=== PATIENT | female | born 1980 | race African-American/Black ===

== ENCOUNTER 2023-07-06 04:16 | Emergency (ER) | payer BC, SELFPAY ==
[2023-07-06 04:24] VITALS: BP 179/97
[2023-07-06 05:52] VITALS: BMI 56.2
[2023-07-06 05:59] LABS: % Basophils 0.7 % (0-2); % Eosinophils 4.8 % (0-6); % Immature Granulocytes 0.4 % (0-0.5); % Lymphocytes 24.3 % (20.5-51.1); % Neutrophils 63.8 % (42.2-75.2); Absolute Basophils 0.1 10^3/uL (0-0.2); Absolute Eosinophils 0.5 10^3/uL (0-0.7); Absolute Lymphocytes 2.5 10^3/uL (1.2-3.4); Absolute Monocytes 0.6 10^3/uL (0.1-0.6); Absolute Neutrophils 6.5 10^3/uL (1.4-6.5); Hematocrit 32.4 % (37.0-47.0); Hemoglobin 10.2 g/dL (12.0-16.0); Mean Corp Hgb Conc. 31.5 g/dL (33.0-37.0); Mean Corpuscular Hgb 24.8 pg (27.0-31.0); Mean Corpuscular Volume 78.8 fL (81.0-99.0); Mean Platelet Volume 9.5 fL (7.4-10.4); Nucleated Red Blood Cells % 0 %; Platelet Count 415 10^3/uL (130-400); Red Blood Cell Count 4.11 10^6/uL (4.20-5.40); Red Cell Dist. Width 16.7 % (11.5-14.5); White Blood Cell Count 10.2 10^3/uL (4.8-10.8)
[2023-07-06 06:00] VITALS: BP 135/88
--- NOTE | 2023-07-06 06:20 | ED.GENMED ---
History of Present Illness
General
Chief Complaint: Chest Pain
Source: patient and family
Exam Limitations: none
Time Seen by Provider: 07/06/23 06:19
Nursing documentation reviewed up to this point in time: agreed with
Travel History
Have you had any contact with someone who has COVID-19?: No
Do you have any symptoms of coronavirus? Fever > 100 degrees, chills, cough, shortness of breath, sore throat, loss of taste or smell, muscle aches, or headache?: No
History of Present Illness
History of Present Illness:
43 yo Female presents emergency department complaining of intermittent chest pain for the past 2 weeks. Last night she noticed swelling and pain in her left arm. She ran a 5K last week without any difficulty. She denies any exertional chest pain.
Past History
Past History
ED Past Medical History: Other (Anemia)
ED Past Surgical History:
Social History
Tobacco: Non-smoker
Alcohol: None
Drug: None
Living: with family
Employment: Employed
Family History
Family History: Hypertension
Review of Systems
Review of Systems
Allergies reviewed?: Yes
All Other Systems: Not applicable
Constitutional: Reports no symptoms
EENT: Reports no symptoms
Respiratory: Reports no symptoms
Cardiac: Reports chest pain
ABD/GI: Reports no symptoms
: Reports no symptoms
Musculoskeletal: Reports edema
Skin: Reports no symptoms
Neurological: Reports no symptoms
Endocrine: Reports no symptoms
Hematologic/Lymphatic: Reports no symptoms
Psychiatric: Reports no symptoms
Phy Exam
Physical Exam
Physical Exam:
Physical Exam
General: no apparent distress, not acutely ill
Neck: supple. no meningeal signs. normal posterior pharynx
Heart: s1/s2 regular rate and rhythm, no murmur. equal radial
pulses. Chest wall tender to palpation, reproducing pain
HEENT: Pupils equal round reactive to light, EOMI
Lungs: no acute respiratory distress. clear bilaterally
Abdomen: normal bowel sounds. not tender. no CVAT
Neuro: alert and oriented. no focal neurological deficits cranial nerves II through XII intact
Skin: no rash
Psychiatric: well kept. interactive and cooperative
Extremities: no edema. no calf tenderness. negative homans. good distal pulses
Scores
Heart Score for Chest Pain Patients
STEMI patient?: No
History: Slightly or Non-Suspicious
ECG: Normal
Age: </= 45 years
Risk Factors: No Risk Factors
Troponin: </= Normal Limit
Heart Score for Chest Pain Patients: 0
Heart Score Risk: 2.5% MACE over next 6 weeks
Course
Orders/Labs/Results
Orders:
Orders
07/06/23 04:29
ECG [Electrocardiogram (*1)] Urgent
Reason for Study: Chest Pain
Cardiology Consult: Unknown
EKG- Treatment ONCE
07/06/23 05:55
Complete Blood Count/With Diff Urgent
Troponin I Urgent
07/06/23 06:29
US Periph Venous UPPER Ext LT Urgent
Comment:
Reason For Exam: left hand swelling
07/06/23 06:30
Aspirin Chewable [Low Strength Aspirin] 324 mg PO NOW STA
CR Chest - 2 Views Urgent
Comment:
Reason For Exam: chest pain
07/06/23 06:39
Comprehensive Metabolic Panel Urgent
Comment: REDRAW
07/06/23 09:15
Periph Venous Lwr Ext Left US [US Periph Venous LOWER Ext LT] Urgent
Comment:
Reason For Exam: left leg swelling, discomfort
Abnormal Lab Results
07/06/23 07/06/23
05:55 06:39
RBC 4.11 L 10^6/uL
(4.20-5.40)
Hgb 10.2 L g/dL
(12.0-16.0)
Hct 32.4 L %
(37.0-47.0)
MCV 78.8 L fL
(81.0-99.0)
MCH 24.8 L pg
(27.0-31.0)
MCHC 31.5 L g/dL
(33.0-37.0)
RDW 16.7 H %
(11.5-14.5)
Plt Count 415 H 10^3/uL
(130-400)
Glucose 105 H mg/dl
(70-99)
07/06/23 05:55
07/06/23 06:39
Vital Signs
Initial and Last Documented VS:
Initial Vital Signs
Temp Pulse Resp BP Pulse Ox
98.2 F 88 20 179/97 98
07/06/23 04:24 07/06/23 04:24 07/06/23 04:24 07/06/23 04:24 07/06/23 04:24
Last Documented Vital Signs
Temp Pulse Resp BP Pulse Ox
98.2 F 68 18 123/77 98
07/06/23 04:24 07/06/23 13:14 07/06/23 09:22 07/06/23 13:14 07/06/23 13:14
MDM/Problems Addressed
Differential Diagnosis Includes:
DVT, PE
MDM/Problems Addressed:
43-year-old female with intermittent chest pain, likely musculoskeletal. Edema to the left hand, no signs of DVT. Do not suspect dissection. Stable for discharge.
*Radiology
Radiology exam reviewed: radiology read reviewed (Ultrasound left upper and left lower extremity no DVT)
*Pulse Oximetry
Patient hypoxic: no
*EKG
Interpreted by ED Provider?: Yes
EKG Intrepretation Date: 07/06/23
EKG Intrepretation Time: 04:36
Interpretation: normal
Comparison EKG: changes noted
Heart Rate: 78
Rate: normal
Rhythm: sinus
[place]: normal axis
Interval: normal interval
QRS Pattern: normal QRS
Ischemia: no ischemia
*Manager Managed Care Interpretation
Rate: normal
Interpretation: normal
Heart Rate: 68
Rhythm: sinus
*Critical Care Note
Total Time (30-74mins, 75-104mins- exclusive of procedures): Not Applicable
Patient Management
Social determinants of health affecting care: Living situation
Escalation/DeEscalation of care consider admission/obs:
Admit not indicated
ED Attending Note
-
Portions of this chart may have been created with voice recognition software.� Occasional wrong word or��sound alike� substitutions may have occurred due to the inherent limitations of voice recognition software.
Discharge Plan
Departure
Patient Disposition: Home (Routine Discharge)
Date of Disposition: 07/06/23
Time of Disposition: 13:08
Patient with high blood pressure during this ER visit?: Yes
Condition: Good
Discharge Problem:
Chest pain, non-cardiac, Edema of left upper arm, Leg edema, left
Instructions: Chest Pain That Is Not Caused by the Heart (DC), Dependent Edema (DC)
Prescriptions:
No Action
No Current Medications
0
Referrals:
Shalom Baeza MD [Family Provider] - Call in 1-3 days for appt
Interventions
Interventions:
*Risk Screen - Suicide Last Done: 07/06/23 04:24
*General Assessment Last Done: 07/06/23 04:24
*Neglect/Abuse Screening Last Done: 07/06/23 04:24
ED- Fall Risk Assessment Last Done: 07/06/23 04:24
*ED COVID-19 Vaccine History Last Done: 07/06/23 04:24
*Nursing Disposition Last Done: 07/06/23 13:20
ED- Cardiac Assessment Last Done: 07/06/23 05:17
ED- Pulmonary Assessment Last Done: 07/06/23 05:10
ED-Skin Assessment Last Done: 07/06/23 05:15
Discharge Date and Time
Discharge Date/Time: 07/06/23 13:21
Print Language: SWISS
[2023-07-06 06:27] LABS: Troponin I < 0.012 ng/ml
[2023-07-06] MEDS: LOW STRENGTH ASPIRIN 324 MG PO (06:41)
[2023-07-06 07:10] LABS: ALT (SGPT) 20 U/L (0-35); AST (SGOT) 26 U/L (14-36); Albumin 3.5 g/dl (3.5-5.0); Alkaline Phosphatase 115 U/L (38-126); Blood Urea Nitrogen 13 mg/dl (7-17); Calcium 8.8 mg/dl (8.4-10.2); Carbon Dioxide 25 mmol/L (22-30); Chloride 107 mmol/L (98-107); Estimated Creatinine Clearance > 125 ml/min; Glucose 105 mg/dl (70-99); Potassium 4.5 mmol/L (3.5-5.1); Sodium 136 mmol/L (135-145); Total Bilirubin 0.3 mg/dl (0.2-1.3); Total Protein 7.1 g/dl (6.3-8.2); eGFR > 60.00
[2023-07-06 09:22] VITALS: BP 143/94
[2023-07-06 13:11] VITALS: BP 123/77
[2023-07-06 13:14] VITALS: BP 123/77
== END 2023-07-06 13:21 | disposition home or self-care (01) ==
LOC: EMR 04:16
PROVIDERS: Student in an Organized Health Care Education/Training Program; EMERGENCY PHYSICIAN Emergency Medicine; FAMILY PHYSICIAN Internal Medicine
DX: R07.89 Other chest pain (principal); R22.42 Localized swelling, mass and lump, left lower limb; R22.33 Localized swelling, mass and lump, upper limb, bilateral; R03.0 Elevated blood-pressure reading, without diagnosis of hypertension
CPT/HCPCS: 99285; 71046; 80053; 84484; 85025; 93005; 93971

== ENCOUNTER 2024-08-04 15:15 | Emergency (ER) | payer BC, SELFPAY ==
[2024-08-04 15:23] VITALS: BP 155/99
[2024-08-04 15:54] LABS: % Basophils 0.6 % (0-2); % Immature Granulocytes 0.7 % (0-0.5); % Lymphocytes 28.1 % (20.5-51.1); % Monocytes 5.4 % (1.7-9.3); % Neutrophils 62.2 % (42.2-75.2); Absolute Basophils 0.1 10^3/uL (0-0.2); Absolute Eosinophils 0.3 10^3/uL (0-0.7); Absolute Immature Granulocytes 0.1 10^3/uL (0-0.05); Absolute Lymphocytes 2.5 10^3/uL (1.2-3.4); Absolute Monocytes 0.5 10^3/uL (0.1-0.6); Absolute Neutrophils 5.6 10^3/uL (1.4-6.5); Hematocrit 34.1 % (37.0-47.0); Hemoglobin 10.8 g/dL (12.0-16.0); Mean Corp Hgb Conc. 31.7 g/dL (33.0-37.0); Mean Corpuscular Hgb 24.6 pg (27.0-31.0); Mean Corpuscular Volume 77.7 fL (81.0-99.0); Mean Platelet Volume 9.2 fL (7.4-10.4); Nucleated Red Blood Cells % 0 %; Platelet Count 419 10^3/uL (130-400); Red Blood Cell Count 4.39 10^6/uL (4.20-5.40); Red Cell Dist. Width 16.3 % (11.5-14.5)
[2024-08-04 16:03] LABS: HCG, Serum Qualitative Screen Negative
[2024-08-04 16:07] LABS: ALT (SGPT) 19 U/L (0-35); AST (SGOT) 17 U/L (14-36); Albumin 3.9 g/dl (3.5-5.0); Alkaline Phosphatase 95 U/L (38-126); Blood Urea Nitrogen 13 mg/dl (7-17); Calcium 8.6 mg/dl (8.4-10.2); Carbon Dioxide 27 mmol/L (22-30); Chloride 107 mmol/L (98-107); Glucose 83 mg/dl (70-99); Potassium 3.8 mmol/L (3.5-5.1); Sodium 138 mmol/L (135-145); Total Bilirubin 0.5 mg/dl (0.2-1.3); Total Protein 7.6 g/dl (6.3-8.2); eGFR > 60.00
[2024-08-04 16:19] LABS: Troponin I < 0.012 ng/ml
--- NOTE | 2024-08-04 16:21 | ED.GENMED ---
History of Present Illness
General
Chief Complaint: Blood Pressure Problem
Source: patient
Exam Limitations: none
Time Seen by Provider: 08/04/24 16:20
History of Present Illness
History of Present Illness:
Patient had a medical screening last week. This morning she was told her blood pressure was high last week. This made her somewhat upset she started having some palpitations felt uneasy. She went to urgent care to recheck her blood pressure that
was elevated. They sent her to the hospital for further evaluation. They were concerned about a blood clot.
Past History
Past History
ED Past Medical History: Other (Anemia)
ED Past Surgical History:
Social History
Tobacco: Non-smoker
Alcohol: None
Drug: None
Living: with family
Employment: Employed
Family History
Family History: Hypertension
Review of Systems
Review of Systems
All Other Systems: Not applicable
Constitutional: Denies fever
Respiratory: Denies trouble breathing
Cardiac: Denies chest pain, diaphoresis or syncope
Phy Exam
Physical Exam
Physical Exam:
GENERAL: Alert and oriented in no apparent distress
EYE: Orbits normal.
NECK: Supple, no thyroid palpable
CARDIAC: Regular rate and rhythm without any obvious murmurs.
LUNGS: Clear breath sounds,normal
ABDOMEN: Soft, without focal tenderness or distention
NEUROLOGICAL: Alert and oriented , grossly non-focal
SKIN: Warm and dry, no rash or lesion, no discoloration, skin intact.
MUSCULOSKELETAL: No edema,no deformity.Good color
PSYCH: Normal and appropriate interaction.
Course
Orders/Labs/Results
Orders:
Orders
08/04/24 15:16
ECG [Electrocardiogram (*1)] Urgent
Reason for Study: Palpitations
EKG- Treatment ONCE
08/04/24 15:28
Test Result ONCE
08/04/24 15:40
Complete Blood Count/With Diff Urgent
Comprehensive Metabolic Panel Urgent
HCG, Serum Qualitative Screen Urgent
TSH Reflex To Free T4 Urgent
Comment: ADD ON
Troponin I Urgent
08/04/24 16:31
Add On- LAB Urgent
Tests Added?: tsh reflex t4
Cardiac Monitoring- Treatment ONCE
08/04/24 17:[address] Non Medication Order As Directed
Physician Order: bp please
Above order entered?: Yes
Abnormal Lab Results
08/04/24
15:40
Hgb 10.8 L g/dL
(12.0-16.0)
Hct 34.1 L %
(37.0-47.0)
MCV 77.7 L fL
(81.0-99.0)
MCH 24.6 L pg
(27.0-31.0)
MCHC 31.7 L g/dL
(33.0-37.0)
RDW 16.3 H %
(11.5-14.5)
Plt Count 419 H 10^3/uL
(130-400)
Abs Immat Gran (auto) 0.1 H 10^3/uL
(0-0.05)
Immature Gran % 0.7 H %
(0-0.5)
08/04/24 15:40
08/04/24 15:40
Vital Signs
Initial and Last Documented VS:
Initial Vital Signs
Temp Pulse Resp BP Pulse Ox
98.4 F 76 18 155/99 100
08/04/24 15:23 08/04/24 15:23 08/04/24 15:23 08/04/24 15:23 08/04/24 15:23
Last Documented Vital Signs
Temp Pulse Resp BP Pulse Ox
98.4 F 68 20 123/79 100
08/04/24 15:23 08/04/24 18:06 08/04/24 18:06 08/04/24 18:10 08/04/24 15:23
MDM/Problems Addressed
Differential Diagnosis Includes:
Patient's only medical complaint other than her uneasiness about her blood pressure was palpitations. Is not described as a severe racing heart or near syncope. No chest pain no shortness of breath no leg pain or swelling no recent long trips. My
feeling towards a blood clot are very very low below the threshold of workup. Patient will be monitored. Anemia stable. Blood pressure mildly elevated but stable
*Pulse Oximetry
Patient hypoxic: no
*EKG
Interpreted by ED Provider?: Yes
Interpretation: abnormal
Comparison EKG: changes noted
Heart Rate: 77
Rate: normal
Rhythm: sinus
[place]: normal axis
Interval: normal interval and first degree heart block
QRS Pattern: normal QRS
Ischemia: no ischemia
*Critical Care Note
Total Time (30-74mins, 75-104mins- exclusive of procedures): Not Applicable
Update Note
Update Note:
Patient has remained stable and nontoxic. No distress. No arrhythmias here. Blood pressure improved. Discharged to follow-up
ED Attending Note
-
Portions of this chart may have been created with voice recognition software.� Occasional wrong word or��sound alike� substitutions may have occurred due to the inherent limitations of voice recognition software.
Discharge Plan
Departure
Patient Disposition: Home (Routine Discharge)
Date of Disposition: 08/04/24
Time of Disposition: 18:14
Patient with high blood pressure during this ER visit?: Yes
Discharge Problem:
Palpitations/hypertension, Chronic anemia
Instructions: Palpitations - ED discharge instructions, BLOOD PRESSURE
Prescriptions:
No Action
No Current Medications
0
Referrals:
Shalom Baeza MD [Family Provider] - Follow up in 2-3 days
Interventions
Interventions:
*Risk Screen - Suicide Last Done: 08/04/24 15:23
*General Assessment Last Done: 08/04/24 15:23
*Neglect/Abuse Screening Last Done: 08/04/24 15:23
*ED- Fall Risk Assessment Last Done: 08/04/24 16:54
*ED COVID-19 Vaccine History Last Done: 08/04/24 16:54
ED- Cardiac Assessment Last Done: 08/04/24 16:55
ED- Neurological Assessment Last Done: 08/04/24 16:55
ED- Pulmonary Assessment Last Done: 08/04/24 16:55
Discharge Date and Time
Print Language: HEBREW
[2024-08-04 17:56] LABS: TSH Reflex To Free T4 1.85 uIU/ml (0.47-4.68)
[2024-08-04 18:10] VITALS: BP 123/79
== END 2024-08-04 18:25 | disposition home or self-care (01) ==
LOC: EMR 15:15
PROVIDERS: Emergency Medicine; EMERGENCY PHYSICIAN Emergency Medicine; FAMILY PHYSICIAN Internal Medicine
DX: R00.2 Palpitations (principal); I10 Essential (primary) hypertension; D64.9 Anemia, unspecified
CPT/HCPCS: 99283; 80053; 84443; 84484; 84703; 85025; 93005